=== PATIENT | female | born 1960 | race Hispanic/Latino ===

== ENCOUNTER → 2017-11-03 | Outpatient (CLI) | payer OTHER ==
--- NOTE | 2017-11-03 11:56 | Diagnostic Imaging Report ---
EXAM: CT Abdomen and Pelvis WITHOUT contrast INDICATION: \[id number] \[id number] \S\RENAL COLIC COMPARISON: None. TECHNIQUE: Abdomen and pelvis were scanned utilizing a multidetector helical scanner from the lung base to the pubic symphysis without administration of IV contrast. Absence of intravenous contrast decreases sensitivity for detection of focal lesions and vascular pathology. Coronal and sagittal reformations were obtained. Routine protocol was performed. IV CONTRAST: None ORAL CONTRAST: Water COMPLICATIONS: None RADIATION DOSE: Total DLP: 265.45 mGy*cm Estimated effective dose: (DLP x 0.015 x size factor) mSv CTDIvol has been reviewed. It is below the limits set by the Radiation Protocol Committee (RPC). FINDINGS: LINES and TUBES: None. LOWER THORAX: Groundglass appearance of the lung bases may be due to expiration or represent mild interstitial edema. HEPATOBILIARY: Hepatomegaly. Diffuse hepatic steatosis. Segment 7 calcified granuloma. No biliary ductal dilation. GALLBLADDER: No radio-opaque stones or sludge. No wall thickening. SPLEEN: No splenomegaly. PANCREAS: No focal masses or ductal dilatation. ADRENALS: No adrenal nodules KIDNEYS/URETERS: Multifocal areas of right renal cortical scarring. There is cortical calcification in the superior pole. There appears to be some calyceal calcifications in the superior and mid poles. Punctate distal right ureteral calculus (series 3, image 138) versus pelvic phlebolith. Left inferior pole staghorn calculus with mild dilatation of left inferior pole collecting system. There are separate subcentimeter left inferior pole renal calculi, measuring up to 0.6 cm. Mild left inferior pole cortical thinning/scarring. GI TRACT: No abnormal distention, wall thickening, or evidence of bowel obstruction. Appendix is normal. PELVIC ORGANS/BLADDER: Unremarkable. Multiple pelvic phleboliths. LYMPH NODES: No lymphadenopathy. VESSELS: Unremarkable. PERITONEUM / RETROPERITONEUM: No free air or fluid. BONES: Unremarkable. No acute osseous abnormality. SOFT TISSUES: Fat-containing left inguinal hernia. IMPRESSION: 1. Enlarged steatotic liver. 2. Multifocal right renal renal cortical scarring. 3. Punctate distal right ureteral calculus versus phlebolith. No right hydronephrosis. 4. Left renal inferior pole staghorn calculus. There are additional subcentimeter left inferior pole calculi with mild dilatation of left inferior pole collecting system and cortical atrophy. Signed by: Dr. Brandon Perez MD on 11/03/2017 11:53 AM
== END ==
LOC: CT 08:34
PROVIDERS: ATTEND Family Medicine
DX: N23 Unspecified renal colic (principal)
CPT/HCPCS: 74176